=== PATIENT | female | born 2000 | race Two or more races ===

== ENCOUNTER 2022-11-23 05:24 | Inpatient (IN) | payer OTHER ==
[~2022-11-23] VITALS: Ht 172.7 cm; Wt 3.2 kg
[2022-11-23] MEDS ORDERED: LABETALOL HCL100 MG PO (06:11)
[2022-11-23] MEDS ORDERED: ECOTRIN81 MG PO (06:12)
[2022-11-23] MEDS ORDERED: PRENATAL TABLE1 EAC1 PO (06:12)
[2022-11-27] MEDS ORDERED: LABETALOL HCL200 MG PO (14:09)
== END 2022-11-27 16:31 | disposition home or self-care (01) | DRG 787 ==
LOC: LDR 05:24 → OB/GYN 05:24
PROVIDERS: ADMIT Specialist; ATTEND Specialist
PROC: 4A1HXCZ Monitoring of Products of Conception, Cardiac Rate, External Approach (ICD-10-PCS; 2022-11-23)
PROC: 10D00Z1 Extraction of Products of Conception, Low, Open Approach (ICD-10-PCS; principal; 2022-11-24 07:00)
DX: O62.1 Secondary uterine inertia (principal); O10.02 Pre-existing essential hypertension complicating childbirth; Z3A.38 38 weeks gestation of pregnancy; Z37.0 Single live birth; Z20.822 Contact with and (suspected) exposure to COVID-19

== ENCOUNTER 2024-02-16 09:30 | Inpatient (IN) | payer OTHER ==
[~2024-02-16] VITALS: Ht 172.7 cm; Wt 78.0 kg
[~2024-02-16 09:30] MED LIST: ECOTRIN81 MG PO; LABETALOL HCL100 MG PO; LABETALOL HCL200 MG PO; PRENATAL TABLE1 EAC1 PO
[2024-02-16] MEDS ORDERED: CHILDREN'S ASPI81 MG PO (10:58)
[2024-02-16 11:15] LABS: URINE APPEARANCE Cloudy; URINE BILIRRUBIN Negative (NEGATIVE); URINE BLOOD Negative; URINE COLOR Dark Yellow; URINE GLUCOSE Negative (NEGATIVE); URINE KETONE Trace (NEGATIVE); URINE LEUKOCYTE Moderate; URINE NITRATE Negative; URINE PROTEIN Trace (NEGATIVE)
[2024-02-16 11:21] LABS: HEMOGLOBIN 11.9 g/dL (12.0-15.00); MEAN CELL VOLUME 89.8 fL (80.00-100.00); MEAN CORPUSCULAR HEMOGLOBIN 31.4 pg (27.00-32.0); PLATELET COUNT 214 K/uL (150-450); RED BLOOD COUNT 3.79 M/uL (4.00-6.00)
[2024-02-16 11:21] LABS: URINE BACTERIA 1564.8 uL (0.0-1933); URINE RBC 2.2 uL (0.0-20.8); URINE WBC 55.7 uL (0.0-23.2)
[2024-02-16 11:27] LABS: URINE CAST 0.15 uL (0.0-1.40)
[2024-02-16 12:10] LABS: BILIRUBIN TOTAL 0.24 mg/dL (0.3-1.2); CALCIUM 9.1 mg/dL (8.5-10.1); CREATININE SERUM 0.65 mg/dL (0.55-1.02); GFR 112.95; INR < 0.93; POTASSIUM 4.13 mEq/L (3.5-5.1); PROTHROMBIN TIME 9.9 SECONDS (9.0-11.5)
[2024-02-21 09:41] VITALS: BP 120/85
[2024-02-21] MEDS ORDERED: ERYTHROMYCIN BASE OPHT 1GM EACH TUBE OP ONE (17:45)
[2024-02-21] MEDS ORDERED: OXYTOCIN 10 UNITS/ML VIAL IV ONE (17:45)
[2024-02-21] MEDS ORDERED: CEFAZOLIN SODIUM 1,000 MG VIAL IV ONE (17:45)
[2024-02-21] MEDS ORDERED: MEPERIDINE HCL/PF 50 MG/ML VIAL IV SCH (18:30)
[2024-02-21] MEDS ORDERED: PROMETHAZINE HCL 50 MG/ML AMPUL IM SCH (18:30)
[2024-02-21] MEDS ORDERED: KETOROLAC TROMETHAMINE 60 MG VIAL IM ONE (18:30)
[2024-02-21] MEDS ORDERED: MORPHINE SULFATE 4 MG/ML VIAL IV ONE ×2 (19:25→19:55)
[2024-02-21] MEDS ORDERED: LABETALOL HCL 100 MG TABLET PO ONE (21:30)
[2024-02-21 22:09] VITALS: BP 146/80
[2024-02-22 00:36] VITALS: BP 132/86
[2024-02-22 01:33] LABS: HEMATOCRIT 30.5 % (36.0-45.00); HEMOGLOBIN 10.4 g/dL (12.0-15.00); MEAN CELL VOLUME 90.4 fL (80.00-100.00); MEAN CORPUSCULAR HEMOGLOBIN 30.8 pg (27.00-32.0); MEAN CORPUSCULAR HGB CONC 34.1 g/dl (32.0-36.0); PLATELET COUNT 186 K/uL (150-450); RED BLOOD COUNT 3.38 M/uL (4.00-6.00); RED CELL DISTRIBUTION WIDTH 14.8 % (11.5-14.5)
[2024-02-22 04:00] VITALS: BP 125/95
[2024-02-22] MEDS ORDERED: OxyCODONE HCL/APAP UD (PERCOCET) PO SCH (08:00)
[2024-02-22 08:14] VITALS: BP 126/81
[2024-02-22] MEDS ORDERED: DOCUSATE CALCIUM 240 MG CAPSULE PO SCH (09:00)
[2024-02-22] MEDS ORDERED: SIMETHICONE 125 MG CAPSULE PO SCH (09:00)
[2024-02-22] MEDS ORDERED: LABETALOL HCL 100 MG TABLET PO SCH (09:00)
[2024-02-22 15:13] LABS: MEAN CELL VOLUME 91.8 fL (80.00-100.00); PLATELET COUNT 188 K/uL (150-450); RED BLOOD COUNT 2.13 M/uL (4.00-6.00); RED CELL DISTRIBUTION WIDTH 14.8 % (11.5-14.5)
[2024-02-22 15:14] LABS: HEMATOCRIT 19.5 % (36.0-45.00); MEAN CORPUSCULAR HEMOGLOBIN 31.9 pg (27.00-32.0)
[2024-02-22 15:18] LABS: HEMOGLOBIN 6.8 g/dL (12.0-15.00)
[2024-02-22 16:14] VITALS: BP 125/86
[2024-02-23 00:40] VITALS: BP 137/90
[2024-02-23 08:38] VITALS: BP 138/98
[2024-02-23] MEDS ORDERED: MEASLES,MUMPS,RUBELLA VACC/PF 1 VIAL VIAL SUBCUTANEO SCH (13:30)
[2024-02-23 16:00] VITALS: BP 139/60
[2024-02-23 16:42] LABS: HEMATOCRIT 26.9 % (36.0-45.00); MEAN CELL VOLUME 85.3 fL (80.00-100.00); MEAN CORPUSCULAR HGB CONC 33.8 g/dl (32.0-36.0); PLATELET COUNT 153 K/uL (150-450); RED BLOOD COUNT 3.16 M/uL (4.00-6.00); RED CELL DISTRIBUTION WIDTH 17.1 % (11.5-14.5)
[2024-02-23 16:44] LABS: HEMOGLOBIN 9.1 g/dL (12.0-15.00); MEAN CORPUSCULAR HEMOGLOBIN 28.7 pg (27.00-32.0)
[2024-02-24 00:27] VITALS: BP 160/80
[2024-02-24 08:00] VITALS: BP 124/72
[2024-02-24] MEDS ORDERED: INTEGRA PLUS C1 EACH PO (14:20)
[2024-02-24] MEDS ORDERED: SURFAK240 M1 PO (14:20)
[2024-02-24] MEDS ORDERED: IBU800 MG PO (14:20)
== END 2024-02-24 16:01 | disposition home or self-care (01) | DRG 787 ==
LOC: LDR 02-21 07:00 → O/R 02-21 09:16 → LDR 02-21 09:30 → O/R 02-21 14:50 → OB/GYN 02-21 19:48
PROVIDERS: Obstetrics & Gynecology; ADMIT Specialist; ATTEND Specialist
PROC: 4A1HXCZ Monitoring of Products of Conception, Cardiac Rate, External Approach (ICD-10-PCS; 2024-02-21)
PROC: 10D00Z1 Extraction of Products of Conception, Low, Open Approach (ICD-10-PCS; principal; 2024-02-21 07:00)
PROC: 30233N1 Transfusion of Nonautologous Red Blood Cells into Peripheral Vein, Percutaneous Approach (ICD-10-PCS; 2024-02-22)
DX: O34.211 Maternal care for low transverse scar from previous cesarean delivery (principal); D62 Acute posthemorrhagic anemia; O10.92 Unspecified pre-existing hypertension complicating childbirth; O99.02 Anemia complicating childbirth; Z3A.38 38 weeks gestation of pregnancy; Z37.0 Single live birth; Z20.822 Contact with and (suspected) exposure to COVID-19